=== PATIENT | male | born 1995 | race Caucasian/White ===

== ENCOUNTER 2020-02-08 21:34 | Emergency (ER) | payer OTHER, SELFPAY ==
[2020-02-08] VITALS (15 sets, daily range): BP systolic 109–145; BP diastolic 68–118; PULSE 85–130; RESP 12–22; TEMP 36.6; O2SAT 96–100
--- NOTE | ~2020-02-08 | CT_ITS ---
EXAMINATION: CT abdomen pelvis w con DATE: 02/08/2020 22:35 INDICATION: Right upper quadrant abdominal pain. TECHNIQUE: Computed tomography (CT) of the abdomen and pelvis was performed with 100 mL Omnipaque 350 intravenous contrast. Automated exposure control and iterative reconstruction technique were employe d. The dose-length product was 485.46 mGy-cm. COMPARISON: None. FINDINGS: The visualized portions of the lung bases are clear without pneumonia or pleural effusion. The heart size is normal. No pericardial effusion. The liver, gallbladder, spleen, pancreas, adrenal glands, and kidneys are normal. There are no dilated loops of bowel. The appendix is normal. There ar e no pathologically enlarged lymph nodes. There is no free intraperitoneal fluid. There is levocurvat ure of lumbar spine. IMPRESSION: 1. No etiology for the patient's symptoms. Reviewed, dictated and finalized at location A.
--- NOTE | 2020-02-08 21:47 | ED.ABDPAIN ---
HPI - Abdominal Pain General Chief Complaint: Abdominal Pain Stated Complaint: Right upper quadrant pain Time Seen by Provider: 02/08/20 21:46 History of Present Illness HPI narrative: RUQ pain for the past few days. Associated with nausea and vomiting. Worse with sitting up or leaning forward. He has had similar pain in the past, but never this bad. He has a h/o alcohol abuse and fatty liver disease. He has not had a drink in a year. He does report feeling extremely anxious. Related Data Home Medications Medication Instructions Recorded Confirmed clonazepam 02/08/20 pantoprazole PO 02/08/20 paroxetine HCl mg PO 02/08/20 Allergies Allergy/AdvReac Type Severity Reaction Status Date / Time No Known Allergies Allergy Verified 02/08/20 22:25 Review of Systems Review of Systems: All systems reviewed & are unremarkable except as noted in HPI and below Constitutional: Constitutional: Denies fever(s) ENT: Denies sore throat Cardiovascular: Cardiovascular: Denies chest pain Respiratory: Respiratory: Denies dyspnea Gastrointestinal: Gastrointestinal: Reports abdominal pain, Reports diarrhea and Reports nausea Genitourinary: Genitourinary: Denies dysuria Neurologic: Denies dizziness Psychiatric: Psychiatric: Reports anxiety [facility] Past Medical History Medical History (Updated 02/09/20 @ 00:27 by Rashard Song MD) Alcohol abuse Fatty liver Family History Family History (Updated 02/08/20 @ 22:03 by Rashard Song MD) Other Gall bladder disease Social History Social History (Updated 02/08/20 @ 22:03 by Rashard Song MD) Substance use type: marijuana Living arrangements: with family Exam Const: General: healthy appearing, no acute distress and alert Orientation/consciousness: patient oriented x3 HENMT: Head: normal to inspection Neck: Neck: normal visual inspection Resp: Effort & Inspection: normal respiratory effort Auscultation: clear to auscultation bilaterally, no rales, no rhonchi and no wheezes Cardio: Jugular venous distension: no JVD Rate: tachycardic Rhythm: regular rhythm Heart sounds: no murmurs GI: Inspection: non-distended GI Palp: Yes Soft to palpation, Yes Tenderness to palpation present (GI) (RUQ/epigastrium) and No Rebound tenderness present Skin: General skin exam: normal color Neuro: General: patient oriented x3 and moves all extremities Speech: normal speech Extrem: General: no edema Psych: Appearance: well kempt Affect: Anxious affect present (Tremulous, rapid speech) Course Vital Signs Vital signs: Vital Signs Temperature 36.6 C 02/08/20 21:40 Pulse Rate 130 H 02/08/20 21:40 Respiratory Rate 19 02/08/20 21:40 Blood Pressure 131/118 H 02/08/20 21:40 Pulse Oximetry 97 02/08/20 21:40 Temperature 36.6 C 02/08/20 21:40 Pulse Rate 74 02/09/20 00:39 Respiratory Rate 17 02/09/20 00:39 Blood Pressure 129/79 02/09/20 00:39 Pulse Oximetry 100 02/09/20 00:39 MDM - Abdominal Pain Differential Diagnosis Differential diagnosis: Likely calculus of kidney and other (PUD, cholecystitis, gastritis, IBS) Medical Records Attestation: I reviewed the patient's medical records. Lab Data Attestation: I reviewed the patient's lab results. Result diagrams: 02/08/20 21:54 02/08/20 22:23 Labs: Lab Results 02/08/20 02/08/20 02/08/20 Range/Units 21:54 21:54 22:23 WBC 14.7 H (4.5-10.0) K/mm3 RBC 5.21 (4.6-6.20) M/mm3 Hgb 15.4 (14.0-18.0) g/dL Hct 44.3 (42.0-52.0) % MCV 85.0 (80-100) fl MCH 29.6 (26-34) pg MCHC 34.8 (32-36) g/dl RDW 12.2 (11.5-14.5) % Plt Count 336 (150-375) k/mm3 MPV 11.6 H (7.4-10.4) fl Immature Gran % (Auto) 0.5 (0-0.5) % Neut % (Auto) 42.1 L (45.5-73.1) % Lymph % (Auto) 43.0 (18.3-44.2) % Greene % (Auto) 11.8 H (2.6-8.5) % Eos % (Auto) 1.9 (0-4.4) % Baso % (Auto) 0.7 (0.2-1.2
[2020-02-08] MEDS: fentaNYL CITRATE INJ (*CRX) 100 MCG/2 ML VIAL 50 MCG IV PUSH (22:02)
[2020-02-08] MEDS: ONDANSETRON INJ 4 MG/2 ML VIAL IV PUSH (22:02)
[2020-02-08] MEDS: PANTOPRAZOLE SODIUM IV 40 MG VIAL IV PUSH (22:02)
[2020-02-08 22:05] LABS: Basophils Absolute Auto 0.1 K/mm3 (0.0-0.1); Basophils Percent Auto 0.7 % (0.2-1.2); Eosinophils Absolute Auto 0.3 K/mm3 (0-0.3); Eosinophils Percent Auto 1.9 % (0-4.4); Hematocrit 44.3 % (42.0-52.0); Hemoglobin 15.4 g/dL (14.0-18.0); Immature Granulocyte Absolute 0.07 K/mm3 (0.00-0.031); Immature Granulocyte Percent A 0.5 % (0-0.5); Lymphocytes Absolute Auto 6.31 K/mm3 (0.9-3.2); Mean Corpuscular HGB Conc 34.8 g/dl (32-36); Mean Corpuscular Hemoglobin 29.6 pg (26-34); Mean Platelet Volume 11.6 fl (7.4-10.4); Monocytes Absolute Auto 1.7 K/mm3 (0.1-0.6); Monocytes Percent Auto 11.8 % (2.6-8.5); Neutrophils Absolute Auto 6.2 K/mm3 (1.3-6.7); Neutrophils Percent Auto 42.1 % (45.5-73.1); Platelet Count Result 336 k/mm3 (150-375); Red Blood Count 5.21 M/mm3 (4.6-6.20); Red Cell Distribution Width 12.2 % (11.5-14.5); White Blood Count 14.7 K/mm3 (4.5-10.0)
--- NOTE | 2020-02-08 22:19 | PC.NURSE ---
Patient in CT at this time.
[2020-02-08 22:25] LABS: Estimated CRCL calculation 102 ml/min; Estimated Glomerular Filt Rate > 60
[2020-02-08 22:25] LABS: Alanine Aminotransferase 45 U/L (4-50); Alkaline Phosphatase 62 U/L (38-126); Anion Gap 21 mmol/L (8-16); Aspartate Amino Transferase 46 U/L (17-59); Bilirubin,Total 1.1 mg/dL (0.2-1.3); Blood Urea Nitrogen 11 mg/dL (9-20); Calcium 10.4 mg/dL (8.4-10.2); Carbon Dioxide 19 mmol/L (22-30); Chloride 100 mmol/L (98-107); Estimated CRCL calculation 102 ml/min; Estimated Glomerular Filt Rate > 60; Glucose 119 mg/dL (75-110); Lipase 74 U/L (23-300); Potassium 2.7 mmol/L (3.4-5.0); Sodium 140 mmol/L (137-145)
[2020-02-08 23:31] LABS: Add Urine Microscopic? YES; Appearance Urine Clear (Clear); Bilirubin Urine Negative (Negative); Blood Urine Negative (Negative); Color Urine Yellow (Yellow); Glucose Urine UA Negative (Negative); Ketones Urine 2+ mg/dL (Negative); Leukocyte Esterase Ur Negative LEU/UL (Negative); Mucus Urine Rare /lpf; Nitrate Urine Negative (Negative); Protein Urine Negative (Negative); RBC Urine 0-2 /hpf (0-2); Urobilinogen Urine Negative mg/dL (<2.0); WBC Urine 0-3 /hpf
[2020-02-08] MEDS: DICYCLOMINE HCL INJ 20 MG/2 ML VIAL IM (23:38)
[2020-02-08] MEDS: POTASSIUM CHLORIDE 20 MEQ PACKET (FOR LIQUID) 40 MEQ PO (23:39)
[2020-02-08] MEDS: BELLADONNA ALK/PHENOB ELIX 10 ML, MAG HYDROX/ALUMINUM HYD/SIMETH 30 ML, LIDOCAINE HCL 2... PO (23:39)
[2020-02-09] VITALS: PULSE 88; RESP 20; O2SAT 99
[2020-02-09 00:15] VITALS: O2SAT 99
[2020-02-09 00:16] VITALS: BP 129/79; PULSE 89; RESP 17; O2SAT 97
[2020-02-09 00:39] VITALS: BP 129/79; PULSE 74; RESP 17; O2SAT 100
== END 2020-02-09 00:40 | disposition home or self-care (01) ==
PROVIDERS: Emergency Provider Emergency Medicine
DX: R10.11 Right upper quadrant pain (principal)
CPT/HCPCS: 36415; 74177; 80053; 81001; 83690; 85025; 96372; 96374; 96375; 99284; A9270; C9113; J0500; J2405; J3010; Q9967

== ENCOUNTER 2021-04-24 18:32 | Emergency (ER) | payer OTHER, SELFPAY ==
--- NOTE | ~2021-04-24 | CT_ITS ---
EXAMINATION: CT abdomen pelvis wo con DATE: 04/24/2021 20:24 INDICATION: Right flank pain TECHNIQUE: Computed tomography (CT) of the abdomen and pelvis was performed without intravenous contr ast. Automated exposure control and iterative reconstruction technique were employed. The dose-length product was 247.60 mGy-cm. COMPARISON: 02/08/2020 FINDINGS: Lung bases are clear. Heart size is normal. No pericardial or pleural effusion. Liver, gallbladder, s pleen, pancreas and bilateral adrenal glands are normal. Kidneys and ureters are normal with no uroli thiasis, hydroureteronephrosis or perinephric/ureteral stranding. Bladder is normal. Bowels including the appendix are normal. No free intraperitoneal gas or fluid. No pathologically enlarged abdominal or pelvic lymphadenopathy. Small bone islands at the bilateral femoral heads. Bones are otherwise unr emarkable. IMPRESSION: 1. No urolithiasis or acute intra-abdominal/pelvic process. Reviewed, dictated and finalized at [facility]. ER
--- NOTE | ~2021-04-24 | US_ITS ---
EXAMINATION: US scrotum doppler DATE: 04/24/2021 20:48 INDICATION: Right testicular pain TECHNIQUE: Testicular sonogram utilizing grayscale and Doppler COMPARISON: None. FINDINGS: The right testis measures 4.1 x 2.1 x 2.8 cm. The left testis measures cm. Symmetric normal grayscale appearance to both testes. There is normal vascular flow to both testes. 5 mm anechoic right epididy mal head cyst. The right epididymis is otherwise normal with normal vascular flow. The left epididymi s is normal with normal vascular flow. There is no varicocele or hydrocele. IMPRESSION: 1. 5 mm right epididymal head cyst. Otherwise normal scrotal ultrasound. Reviewed, dictated and finalized at [facility]. [employer]
[2021-04-24 18:37] VITALS: BP 135/88; PULSE 112; RESP 20; TEMP 36.3; O2SAT 100
--- NOTE | 2021-04-24 20:08 | ED.ABDPAIN ---
HPI - Abdominal Pain General Chief Complaint: Abdominal Pain Stated Complaint: right testicular pain Time Seen by Provider: 04/24/21 19:53 Source: patient Mode of arrival: ambulatory Limitations: no limitations History of Present Illness HPI narrative: Patient is a 25-year-old male complaining of lower abdominal pain, right flank pain, 7 out of 10, dull, radiating to his right groin and testicle, intermittent, started 2 weeks ago. Patient states that he feels constipated. Patient denies any testicular injuries. Patient denies any testicular swelling or redness. Related Data Home Medications Medication Instructions Recorded Confirmed clonazepam 02/08/20 pantoprazole PO 02/08/20 paroxetine HCl mg PO 02/08/20 Allergies Allergy/AdvReac Type Severity Reaction Status Date / Time No Known Allergies Allergy Verified 02/08/20 22:25 Review of Systems Review of Systems: All systems reviewed & are unremarkable except as noted in HPI and below Constitutional: Constitutional: Denies body ache(s), Denies chills, Denies excessive sweating, Denies fatigue, Denies fever(s), Denies headache(s), Denies lethargy, Denies malaise, Denies weakness and Denies weight loss Eyes: Eyes: Denies blurry vision, Denies change in vision and Denies loss of vision ENT: Denies dizziness, Denies ear discharge, Denies headache(s), Denies lip swelling, Denies epistaxis, Denies nasal congestion, Denies neck pain, Denies throat swelling and Denies tongue swelling Cardiovascular: Cardiovascular: Denies chest pain, Denies chest pain at rest, Denies chest pain with activity, Denies diaphoresis, Denies rapid heart rate, Denies edema, Denies irregular heart rhythm, Denies lightheadedness, Denies palpitations, Denies dyspnea and Denies dyspnea on exertion Respiratory: Respiratory: Denies chest congestion, Denies cough, Denies hemoptysis, Denies dyspnea and Denies dyspnea on exertion Gastrointestinal: Gastrointestinal: Denies melena, Denies hematochezia, Denies diarrhea, Denies nausea, Denies vomiting and Denies hematemesis Musculoskeletal: Musculoskeletal: Denies abnormal gait, Denies deformity, Denies joint swelling, Denies limited range of motion, Denies neck pain and Denies numbness Neurologic: Denies Abnormal speech present, Denies abnormal gait, Denies confusion, Denies dizziness, Denies headache(s), Denies focal weakness, Denies loss of vision, Denies numbness, Denies Other visual disturbances, Denies Sensory deficit (Neuro) and Denies weakness Psychiatric: Psychiatric: Denies confusion, Denies depression, Denies auditory hallucinations, Denies homicidal ideation and Denies suicidal ideation Endocrine: Endocrine: Denies cold intolerance, Denies excessive sweating, Denies fatigue, Denies heat intolerance and Denies palpitations Hematologic/Lymphatic: Hematologic/Lymphatic: Denies easy bleeding and Denies easy bruising Allergic/Immunologic: Allergic/Immunologic: Denies lip swelling, Denies throat swelling and Denies tongue swelling PMFSH Past Medical History Medical History Alcohol abuse Fatty liver Family History Family History Other Gall bladder disease Social History Social History Substance use type: marijuana Exam Const: General: cooperative, healthy appearing, comfortable, no acute distress, well developed, alert and awake; No confusion Orientation/consciousness: oriented to person, oriented to place, oriented to time, patient oriented x3 and No confusion Limitations: no limitations HENMT: Head: normal to inspection, normocephalic and atraumatic Ears: hearing grossly normal bilaterally, TM normal on the right and TM normal on the left General nose exam: Normal external nose present, Normal nares present and No nasal discharge present Face and sinus: normal facial exa
--- NOTE | 2021-04-24 20:15 | PC.NURSE ---
Pt to CT scan. States I don't know if I'm impacted or not. Pt reports constipation x 2 weeks for which he's taken Dulcolax sometimes and fiber supplements. Reports hx of IBS. Also c/o right testicle swelling and pain. On exam by ED MD Powell, no swelling or tenderness noted/reported. a/o x 4. no s/s of distress.
[2021-04-24 20:46] LABS: Basophils Absolute Auto 0.1 K/mm3 (0.0-0.1); Basophils Percent Auto 0.5 % (0.2-1.2); Eosinophils Absolute Auto 0.1 K/mm3 (0-0.3); Eosinophils Percent Auto 0.6 % (0-4.4); Hematocrit 42.5 % (42.0-52.0); Hemoglobin 14.3 g/dL (14.0-18.0); Immature Granulocyte Absolute 0.04 K/mm3 (0.00-0.031); Immature Granulocyte Percent A 0.3 % (0-0.5); Lymphocytes Absolute Auto 1.24 K/mm3 (0.9-3.2); Lymphocytes Percent Auto 10.7 % (18.3-44.2); Mean Corpuscular HGB Conc 33.6 g/dl (32-36); Mean Corpuscular Hemoglobin 29.4 pg (26-34); Mean Corpuscular Volume 87.3 fl (80-100); Mean Platelet Volume 10.8 fl (7.4-10.4); Monocytes Absolute Auto 0.7 K/mm3 (0.1-0.6); Neutrophils Absolute Auto 9.5 K/mm3 (1.3-6.7); Neutrophils Percent Auto 81.9 % (45.5-73.1); Platelet Count Result 268 k/mm3 (150-375); Red Blood Count 4.87 M/mm3 (4.6-6.20); Red Cell Distribution Width 12.5 % (11.5-14.5); White Blood Count 11.6 K/mm3 (4.5-10.0)
[2021-04-24 20:54] VITALS: BP 114/72; PULSE 75; RESP 20; TEMP 36.7; O2SAT 98
[2021-04-24 20:56] LABS: Alanine Aminotransferase 51 U/L (4-50); Albumin Level 4.9 g/dL (3.5-5.1); Alkaline Phosphatase 56 U/L (38-126); Anion Gap 7 mmol/L (8-16); Aspartate Amino Transferase 37 U/L (17-59); Bilirubin,Total 0.6 mg/dL (0.2-1.3); Blood Urea Nitrogen 11 mg/dL (9-20); Calcium 9.6 mg/dL (8.4-10.2); Carbon Dioxide 25 mmol/L (22-30); Chloride 104 mmol/L (98-107); Estimated CRCL calculation 105 ml/min; Estimated Glomerular Filt Rate > 60; Glucose 111 mg/dL (65-110); Lipase 44 U/L (23-300); Potassium 3.8 mmol/L (3.4-5.0); Sodium 136 mmol/L (137-145)
[2021-04-24 21:17] LABS: Add Urine Microscopic? NO; Appearance Urine Clear (Clear); Bilirubin Urine Negative (Negative); Blood Urine Negative (Negative); Color Urine Yellow (Yellow); Glucose Urine UA Negative (Negative); Ketones Urine Negative (Negative); Leukocyte Esterase Ur Negative LEU/UL (Negative); Nitrate Urine Negative (Negative); Protein Urine Negative (Negative); Urobilinogen Urine Negative mg/dL (<2.0)
[2021-04-24 22:57] VITALS: BP 132/86; PULSE 90; RESP 17; O2SAT 99
== END 2021-04-24 22:58 | disposition home or self-care (01) ==
PROVIDERS: Emergency Provider Emergency Medicine; PCP Nurse Practitioner Family
DX: R10.31 Right lower quadrant pain (principal); N50.811 Right testicular pain; N50.3 Cyst of epididymis
CPT/HCPCS: 36415; 74176; 76870; 80053; 81003; 83690; 85025; 93976; 99284

== ENCOUNTER 2022-01-28 16:14 | Observation (INO) | payer OTHER, SELFPAY ==
--- NOTE | ~2022-01-28 | CT_ITS ---
EXAMINATION: CT abdomen pelvis w con DATE: 01/28/2022 18:01 INDICATION: Right upper quadrant pain TECHNIQUE: Computed tomography (CT) of the abdomen and pelvis was performed with 100 mL Omnipaque-350 intravenous contrast. Automated exposure control and iterative reconstruction technique were employe d. The dose-length product was 558.31 mGy-cm. COMPARISON: 04/24/2021.. FINDINGS: Lower thorax: Unremarkable Liver: Normal. Biliary/Gallbladder: Gallbladder is normal. No bile duct dilation. Pancreas: No mass or duct dilation. Spleen: Normal. Adrenals:No mass. Kidneys: No mass, stone, or hydronephrosis. GI tract: No small or large bowel dilation. The appendix is dilated to 10 mm, with mild wall edema, b oth of which are new since the prior study. No surrounding inflammatory change. Mesentery/Peritoneum: No ascites, mass, or free air. Retroperitoneum: No mass. Pelvis: Pelvic organs are within normal limits. Soft Tissues: Soft tissues and body wall unremarkable. Bones: No acute osseous finding. IMPRESSION: Mildly dilated appendix with mild wall edema, may reflect early acute appendicitis in the appropriate clinical context. Reviewed, dictated and finalized at location K. IMPRESSION: Mildly dilated appendix with mild wall edema, may reflect early acute appendici tis in the appropriate clinical context.
[2022-01-28 16:21] VITALS: BP 136/89; PULSE 124; RESP 19; TEMP 37.1; O2SAT 100
--- NOTE | 2022-01-28 16:46 | ED.ABDPAIN ---
HPI - Abdominal Pain General Chief Complaint: Abdominal Pain Stated Complaint: right sided abdominal Time Seen by Provider: 01/28/22 16:42 Source: patient, family and RN notes reviewed Mode of arrival: ambulatory Limitations: no limitations History of Present Illness HPI narrative: Patient is 26 years old white male drove himself to the emergency room complaining of right upper quadrant pain radiating to right shoulder blades over 1 year, constant with intermittent flares, patient have seen a lot of physicians, been to a lot of emergency room been to auto servicer had extensive work-up without a specific diagnosis. Patient's girlfriend reported that patient under tremendous amount of stress. 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 Patient denies any fever, chills, nausea, vomiting. Patient does medicine at home, does not smoke or drink or uses drugs. Related Data Home Medications Medication Instructions Recorded Confirmed clonazepam 1 mg tablet 02/08/20 pantoprazole 40 mg tablet,delayed PO 02/08/20 release paroxetine HCl 20 mg tablet mg PO 02/08/20 Allergies Allergy/AdvReac Type Severity Reaction Status Date / Time No Known Allergies Allergy Verified 02/08/20 22:25 Review of Systems Review of Systems: All systems reviewed & are unremarkable except as noted in HPI and below PMFSH Past Medical History Medical History Alcohol abuse Fatty liver Family History Family History Other Gall bladder disease Social History Social History Substance use type: marijuana Exam Narrative: General appearance: Well-developed, well-nourished, anxious, restless Skin: Normal color Head: Normocephalic, nontraumatic Eyes: Clear conjunctiva ENT: Oropharynx normal, ears normal, nose normal Neck: Supple, nontender Chest and respiratory: Airway patent, no respiratory distress, no accessory muscle use Heart: Regular rate/rhythm Abdomen: Soft, nontender, no organomegaly, quiet bowel sounds Vascular: Normal peripheral pulses, normal capillary refill. Musculoskeletal: Normal range of motion, nontender back Neurologic: Alert and oriented ?3, [employer] is normal as tested, no gross motor deficit Course Consultations Consultation #1: Dr. Kimball Admit to his service, n.p.o. after midnight Date: 01/28/22 Time: 19:00 Vital Signs Vital signs: Vital Signs Temperature 37.1 C 01/28/22 16:21 Pulse Rate 124 H 01/28/22 16:21 Respiratory Rate 19 01/28/22 16:21 Blood Pressure 136/89 01/28/22 16:21 Pulse Oximetry 100 01/28/22 16:21 Oxygen Delivery Room Air 01/28/22 16:21 Temperature 37.1 C 01/28/22 16:21 Pulse Rate 124 H 01/28/22 16:21 Respiratory Rate 19 01/28/22 16:21 Blood Pressure 136/89 01/28/22 16:21 Pulse Oximetry 100 01/28/22 16:21 Oxygen Delivery Room Air 01/28/22 16:21 MDM - Abdominal Pain Differential Diagnosis Differential diagnosis: Likely abdominal pain, acute appendicitis, constipation, diverticulitis, gastroenteritis and pancreatitis Lab Data Result diagrams: 01/28/22 16:49 01/28/22 16:49 Labs: Lab Results 01/28/22 01/28/22 Range/Units 16:49 16:49 WBC 6.2 (4.5-10.0) K/mm3 RBC 5.01 (4.6-6.20) M/mm3 Hgb 14.5 (14.0-18.0) g/dL Hct 43.6 (42.0-52.0) % MCV 87.0 (80-100) fl MCH 28.9 (26-34) pg MCHC 33.3 (32-36) g/dl RDW 12.5 (11.5-14.5) % Plt Count 294 (150-375) k/mm3 MPV 10.9 H (7.4-10.4) fl Immature Gran % (A
[2022-01-28 16:59] LABS: Basophils Absolute Auto 0.1 K/mm3 (0.0-0.1); Basophils Percent Auto 0.8 % (0.2-1.2); Eosinophils Absolute Auto 0.1 K/mm3 (0-0.3); Eosinophils Percent Auto 1.4 % (0-4.4); Hematocrit 43.6 % (42.0-52.0); Hemoglobin 14.5 g/dL (14.0-18.0); Immature Granulocyte Absolute 0.04 K/mm3 (0.00-0.031); Immature Granulocyte Percent A 0.6 % (0-0.5); Lymphocytes Percent Auto 28.9 % (18.3-44.2); Mean Corpuscular HGB Conc 33.3 g/dl (32-36); Mean Corpuscular Hemoglobin 28.9 pg (26-34); Mean Platelet Volume 10.9 fl (7.4-10.4); Monocytes Absolute Auto 0.6 K/mm3 (0.1-0.6); Monocytes Percent Auto 9.1 % (2.6-8.5); Neutrophils Absolute Auto 3.7 K/mm3 (1.3-6.7); Neutrophils Percent Auto 59.2 % (45.5-73.1); Platelet Count Result 294 k/mm3 (150-375); Red Blood Count 5.01 M/mm3 (4.6-6.20); Red Cell Distribution Width 12.5 % (11.5-14.5); White Blood Count 6.2 K/mm3 (4.5-10.0)
[2022-01-28] MEDS: HYDROmorphone HCL INJ (*CRX) 1 MG/ML SYR 0.5 MG IV PUSH ×2 (17:03→20:39)
[2022-01-28] MEDS: SODIUM CHLORIDE 0.9% IV 1,000 ML 999 ML IV CONT (17:03)
[2022-01-28] MEDS: ONDANSETRON INJ 4 MG/2 ML VIAL IV PUSH (17:03)
[2022-01-28 17:07] LABS: Alanine Aminotransferase 54 U/L (6-50); Alkaline Phosphatase 52 U/L (38-126); Anion Gap 13 mmol/L (8-16); Aspartate Amino Transferase 38 U/L (17-59); Bilirubin,Total 0.5 mg/dL (0.2-1.3); Blood Urea Nitrogen 10 mg/dL (9-20); Calcium 9.6 mg/dL (8.4-10.2); Carbon Dioxide 22 mmol/L (22-30); Chloride 108 mmol/L (98-107); Estimated CRCL calculation 95 ml/min; Estimated Glomerular Filt Rate > 60; Glucose 116 mg/dL (65-110); Lipase 69 U/L (23-300); Sodium 143 mmol/L (137-145)
[2022-01-28 19:18] LABS: Appearance Urine Clear (Clear); Bilirubin Urine Negative (Negative); Blood Urine Trace-intact (Negative); Color Urine Yellow (Yellow); Glucose Urine UA Negative (Negative); Ketones Urine Negative (Negative); Leukocyte Esterase Ur Negative LEU/UL (Negative); Mucus Urine Rare /lpf; Nitrate Urine Negative (Negative); Protein Urine Negative (Negative); RBC Urine 0-2 /hpf (0-2); Specific Grav Ur <= 1.005 (1.001-1.035); Urobilinogen Urine 0.2 mg/dL (<2.0)
[2022-01-28 19:22] LABS: Add Urine Microscopic? YES
--- NOTE | 2022-01-28 20:05 | ADMGEN ---
This patient, Rodri Hanna, was admitted to Medical Room 345-01. Patient/family oriented to hospital policies and general routines including ID bracelet, bed and alarms, visiting hours, pain management, procedures, bathroom and other care routines, personal items, smoking policy, room service/diet, and visiting hours. Information on how to activate the Rapid Response Team has been discussed. Patient/Family are encouraged to report perceived risks to care and to ask questions if they do not understand what they are told or what they should do.
[2022-01-28 20:06] VITALS: BP 146/54; PULSE 96; RESP 16; TEMP 37.1; O2SAT 100
[2022-01-28 20:12] VITALS: BMI 29.3
[2022-01-28] MEDS: LACTATED RINGERS 1,000 ML 125 ML IV CONT (20:40)
[2022-01-29] MEDS: ONDANSETRON INJ 4 MG/2 ML VIAL IV PUSH ×2 (01:39→05:44)
[2022-01-29] MEDS: HYDROmorphone HCL INJ (*CRX) 1 MG/ML SYR 0.5 MG IV PUSH ×2 (01:39→06:11)
[2022-01-29 05:06] VITALS: BP 111/53; PULSE 61; RESP 16; TEMP 36.9; O2SAT 100
[2022-01-29] MEDS: LACTATED RINGERS 1,000 ML 125 ML IV CONT (05:43)
--- NOTE | 2022-01-29 09:02 | WPDANESEPPF ---
Anes - Initial Pre Proc Eval Procedure: Operation Date: 01/29/22 10:30 Proposed Procedures p Laparoscopic Appendectomy - Jacey Kimball MD Date/Time: 01/29/22 09:02 Surgeon: Jacey Kimball MD Pre Op Diagnosis: Acute Appendicitis Patient Data Age: 26 Gender: M Height: 1.78 m Weight: 92.7 kg Last Vital Signs Temp 36.9 C 01/29/22 05:06 Pulse 61 01/29/22 05:06 Resp 16 01/29/22 05:06 BP 111/53 L 01/29/22 05:06 Pulse Ox 100 01/29/22 05:06 O2 Del Method Room Air 01/28/22 16:21 Allergies Allergy/AdvReac Type Severity Reaction Status Date / Time No Known Allergies Allergy Verified 02/08/20 22:25 Home Medications Medication Instructions Recorded Confirmed Type clonazepam 1 mg tablet 1 mg PO DAILY PRN Anxiety 02/08/20 01/28/22 History fluoxetine 10 mg capsule 10 mg PO QAM 01/28/22 01/28/22 History quetiapine 25 mg tablet 25 mg PO TID 01/28/22 01/28/22 History Laboratory Tests 01/28/22 01/28/22 01/28/22 16:49 16:49 18:55 WBC 6.2 K/mm3 K/mm3 (4.5-10.0) RBC 5.01 M/mm3 M/mm3 (4.6-6.20) Hgb 14.5 g/dL g/dL (14.0-18.0) Hct 43.6 % % (42.0-52.0) MCV 87.0 fl fl (80-100) MCH 28.9 pg pg (26-34) MCHC 33.3 g/dl g/dl (32-36) RDW 12.5 % % (11.5-14.5) Plt Count 294 k/mm3 k/mm3 (150-375) MPV 10.9 fl H fl (7.4-10.4) Immature Gran % (Auto) 0.6 % H % (0-0.5) Neut % (Auto) 59.2 % % (45.5-73.1) Lymph % (Auto) 28.9 % % (18.3-44.2) Gilchrist % (Auto) 9.1 % H % (2.6-8.5) Eos % (Auto) 1.4 % % (0-4.4) Baso % (Auto) 0.8 % % (0.2-1.2) Lymph # (Auto) 1.80 K/mm3 K/mm3 (0.9-3.2) Gilchrist # (Auto) 0.6 K/mm3 K/mm3 (0.1-0.6) Eos # (Auto) 0.1 K/mm3 K/mm3 (0-0.3) Baso # (Auto) 0.1 K/mm3 K/mm3 (0.0-0.1) Abs Immat Gran (auto) 0.04 K/mm3 H K/mm3 (0.00-0.031) Absolute Neuts (auto) 3.7 K/mm3 K/mm3 (1.3-6.7) Absolute Nucleated RBC 0.0 K/mm3 K/mm3 (0.0-0.012) Nucleated RBC % 0.0 % % (0.0-0.2) Sodium 143 mmol/L mmol/L (137-145) Potassium 4.0 mmol/L mmol/L (3.4-5.0) Chloride 108 mmol/L H mmol/L (98-107) Carbon Dioxide 22 mmol/L mmol/L (22-30) Anion Gap 13 mmol/L mmol/L (8-16) BUN 10 mg/dL mg/dL (9-20) Creatinine 1.10 mg/dL mg/dL (0.7-1.3) Estim Creat Clear Calc 95 ml/min ml/min Estimated GFR > 60 (59 - ) Glucose 116 mg/dL H mg/dL (65-110) Calcium 9.6 mg/dL mg/dL (8.4-10.2) Total Bilirubin 0.5 mg/dL mg/dL (0.2-1.3) AST 38 U/L U/L (17-59) ALT 54 U/L H U/L (6-50) Alkaline Phosphatase 52 U/L U/L (38-126) Total Protein 8.0 g/dL g/dL (6.3-8.2) Albumin 5.0 g/dL g/dL (3.5-5.1) Lipase 69 U/L U/L (23-300) Urine Color Yellow (Yellow) Urine Appearance Clear (Clear) Urine pH 6.0 (5.0-9.0) Ur Specific Cobb <= 1.005 (1.001-1.035) Urine Protein Negative mg/dL mg/dL (Negative) Urine Glucose (UA) Negative mg/dL mg/dL (Negative) Urine Ketones Negative mg/dL mg/dL (Negative) Ur Blood (Man) Trace-intact (Negative) Urine Nitrate Negative (Negative) Urine Bilirubin Negative (Negative) Urine Urobilinogen 0.2 mg/dL mg/dL (<2.0) Leukocyte Esterase Rfl Negative HORACIO/UL HORACIO/UL (Negative) Urine RBC 0-2 /hpf /hpf (0-2) Urine Mucus Rare /lpf /lpf Patient hx anesthesia problems: none Family hx anesthesia problems: none Results Review: All pre-operative results and documents have been reviewed as part of the pre-operative evaluation. [facility] Past Medical History Medical History (Updated
--- NOTE | 2022-01-29 09:29 | PM.IMHP ---
H&P: HPI History of Present Illness Date/Time: 01/29/22 09:29 Chief Complaint: abdominal pain Narrative: Pt is a 26 y/o M presenting to ED c/o worsening R sided abd pain over last few days. Pt reports pain is more R mid abdomen and radiates up to his R shoulder. Pt reports assoc nausea, poor appetite, bloating. Pt denies fevers, chills. Pt reports this pain is acute but he does have similar pain intermittently for the last yr. Pt reports extensive workup that has all been negative in the past. Review of Systems Constitutional: Constitutional: Reports as per HPI, Denies anorexia, Denies chills, Denies fever(s), Denies lethargy, Denies malaise, Reports poor appetite, Denies weakness, Denies weight gain and Denies weight loss Eyes: Eyes: Reports no additional eye complaints ENT: Reports system reviewed and no additional complaints, except as documented Cardiovascular: Cardiovascular: Reports no additional cardiovascular complaints Respiratory: Respiratory: Reports no additional respiratory complaints Gastrointestinal: Gastrointestinal: Reports as per HPI, Reports abdominal pain, Reports bloating, Reports GI cramping, Reports nausea, Denies vomiting and Denies hematemesis Genitourinary: Genitourinary: Reports no additional male genitourinary complaints Musculoskeletal: Musculoskeletal: Reports no additional musculoskeletal complaints Integumentary/Breasts: Skin/Breast: Reports system reviewed and no additional complaints, except as docu Neurologic: Reports system reviewed and no additional complaints, except as documented Psychiatric: Psychiatric: Reports no additional psychiatric complaints Endocrine: Endocrine: Reports no additional endocrine complaints Hematologic/Lymphatic: Hematologic/Lymphatic: Reports no additional hematologic/lymphatic complaints Allergic/Immunologic: Allergic/Immunologic: Reports no additional allergic/immunologic complaints [facility] Past Medical History Medical History Alcohol abuse as a teenager Asthma Fatty liver 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 Family History Family History Grandparent Diabetes mellitus Acute myocardial infarction Sibling Diabetes mellitus Other Gall bladder disease Social History Social History Smoking status: Never smoker Alcohol intake: never Substance use: current Substance use type: marijuana Other substance usage details: doesnt smoke it, vaporizes it Spiritual care concerns: No Meds Home Medications and Allergies Home Medications Medication Instructions Recorded Confirmed Type clonazepam 1 mg tablet 1 mg PO DAILY PRN Anxiety 02/08/20 01/28/22 History fluoxetine 10 mg capsule 10 mg PO QAM 01/28/22 01/28/22 History quetiapine 25 mg tablet 25 mg PO TID 01/28/22 01/28/22 History Allergies Allergy/AdvReac Type Severity Reaction Status Date / Time No Known Allergies Allergy Verified 02/08/20 22:25 Vital Signs Vital Signs - 24 hr 01/28/22 16:21 01/28/22 20:06 01/29/22 05:06 Temperature 37.1 C 37.1 C 36.9 C Pulse Rate 124 H 96 61 Respiratory Rate 19 16 16 Blood Pressure 136/89 146/54 H 111/53 L Pulse Oximetry 100 100 100 Oxygen Delivery Room Air Exam Const: General: cooperative, comfortable and acute distress mild Orientation/consciousness: patient oriented x3 Limitations: no limitations HENMT: Head: normal to inspection, normocephalic and atraumatic Eyes: General: appearance normal, both eyes and all related structures Neck: Neck: normal visual inspection, full ROM and no lymphadenopathy Chest: Chest palpation & inspection: normal inspection of the chest Resp: Effort & Inspection: normal respiratory effort Auscultation: clear to auscultation bilaterally Cardio: Rate: regular rate Rhythm: regular rhythm GI: Inspection:
--- NOTE | 2022-01-29 09:35 | WPDHPUPDATE1 ---
History and Physical Update Update Date/Time: 01/29/22 09:35 History and Physical has been reviewed, including an updated exam of the patient. There are NO changes in the patient's condition. Risks, benefits, and alternatives have been discussed and questions answered. Patient agrees to proceed with procedure.
[2022-01-29] MEDS: BUPIVACAINE/EPINEPHRINE 0.25% 50 ML VIAL 30 ML INFILTRATE (09:59)
--- NOTE | 2022-01-29 10:12 | W.PM.PROC2 ---
Procedure Note - Detailed Date of Procedure 01/29/22 Pre-op Diagnosis Acute Appendicitis Post-op Diagnosis Same Procedure Performed laparoscopic appendectomy Surgeon Jacey Kimball MD Anesthesia General Indications 26 y/o M presenting to ED c R sided abd pain, workup significant for acute appendicitis Findings acute appendicitis no evidence of perforation Description of Procedure The patient was taken to the operating room and placed in the supine position. After adequate induction of general anesthesia, the patient was prepped and draped in the normal sterile fashion. A time-out was then done to verify the patient's identity, as well as the procedure being performed. I began by making a 5 mm incision in the infraumbilical region, through this a Veress needle was placed in the peritoneal cavity. CO2 gas was then insufflated and after adequate pneumoperitoneum was achieved the Veress needle was removed. Then placed a 5 mm Optiview trocar under direct visualization into the peritoneal cavity. I then insufflated through this trocar site and the endoscope was placed into the trocar. Under direct visualization, placed 2 further 5 mm suprapubic port as well as an additional 12 mm port in the left lower abdomen. At this point identified the cecum, I retracted the cecum both medially and superiorly allowing me to expose the appendix. The appendix was noted to be very dilated and inflamed especially towards the tip. The appendix was noted to be very adherent to the right lateral sidewall as well as the ileum. I was able to bluntly dissect the appendix from these adhesions. I then was able to locate the base of the appendix with the cecum. I created a window with the [place] dissector between the appendix itself and the mesoappendix. I then transected the mesoappendix with a white vascular staple load. The Endo-AINSLEY was then reloaded with a blue staple load and I transected the base of the appendix. Once the specimen was completely detached, an endo-pouch was placed into the 12 mm port site and the specimen was removed through the endo-pouch. The appendiceal specimen will be sent to pathology for further review. I then copiously irrigated the right lower quadrant. Hemostasis was noted at both staple lines no other pathology was seen in this area. I then moved the camera to the suprapubic port to check our its port of entry. No iatrogenic injury or other pathology was noted in the upper abdomen. I then closed the 12 mm port site with a Maxwell code and 0 Vicryl suture under direct visualization. At this point, the abdomen was desufflated and all ports were removed. All port sites were closed with 4 Monocryl subcuticular suture. Dermabond was placed on all wounds. The patient tolerated the procedure well and was extubated in the operating room postop. He will be sent to the recovery room in stable condition. Estimated Blood Loss 10 Drains No Packing No Pathology Yes Complications No immediate complications Condition Stable Disposition PACU [facility] Billing Surgery - Charge Forward: Surgery Billing
[2022-01-29 10:23] VITALS: BP 145/63; PULSE 113; RESP 18; TEMP 36.3; O2SAT 100
[2022-01-29] MEDS: LACTATED RINGERS 1,000 ML 30 ML IV CONT (10:23)
[2022-01-29] MEDS: MEPERIDINE HCL INJ (*CRX) 50 MG/ML AMPUL 25 MG IV PUSH (10:29)
[2022-01-29 10:35] VITALS: BP 130/63; PULSE 88; RESP 12; O2SAT 100
[2022-01-29] MEDS: fentaNYL CITRATE INJ (*CRX) 100 MCG/2 ML VIAL 25 MCG IV PUSH ×3 (10:35→10:57)
[2022-01-29 10:50] VITALS: BP 157/60; PULSE 110; RESP 17; O2SAT 99
[2022-01-29 11:05] VITALS: BP 130/72; PULSE 99; RESP 11; O2SAT 98
[2022-01-29] MEDS: FLUoxetine HCL 10 MG CAPSULE PO (11:44)
[2022-01-29] MEDS: HYDROcodone/acetaminophen (*CRX) 5-325 MG TABLET 1 TAB PO (11:47)
[2022-01-29] MEDS: QUEtiapine FUMARATE 25 MG TABLET PO (13:04)
--- NOTE | 2022-01-30 07:42 | WPDANESPN ---
Anes - Prog Note Post-Op Date/Time: 01/30/22 07:42 Cardiovascular status: normal Respiratory status: normal Airway patency: baseline Mental status: baseline Post-Op hydration status: normal Vital Signs: Last Vital Signs Temp 97.4 F L 01/29/22 10:23 Pulse 99 01/29/22 11:05 Resp 11 L 01/29/22 11:05 BP 130/72 01/29/22 11:05 Pulse Ox 98 01/29/22 11:05 O2 Del Method Room Air 01/29/22 11:05 O2 Flow Rate 10 01/29/22 10:35 Pain Score (VAS): 0/10 I/O: Intake & Output 01/29/22 01/29/22 01/30/22 15:59 23:59 07:59 Intake Total 500 Balance 500 Laboratory Tests 01/28/22 16:49 01/28/22 16:49 Post-procedural complaints: none Patient Feedback: Patient satisfied with anesthetic care.
--- NOTE | 2022-01-31 15:29 | PM.DS ---
DS: Admitting Diagnosis Discharge Date 01/29/22 Admitting Diagnosis acute appendicitis DS: Discharge Diagnosis Discharge Diagnosis (1) Acute appendicitis: Code(s): K35.80 - Unspecified acute appendicitis Status: Acute Assessment and Plan: status post laparoscopic appendectomy, doing well, instructions given for routine postoperative care, home with p.o. analgesia and Colace, follow-up 2 weeks DS: Summary Hospital Course Reason for hospitalization: acute appendicitis Hospital Course: The patient is a 26-year-old male that presented to the emergency department complaining of severe right lower quadrant abdominal pain. Workup in the emergency department, including imaging, was significant for acute appendicitis. These findings, the patient was admitted to the surgical service. Patient was made NPO and started on IV antibiotics. Upon evaluation, the decision was made for urgent appendectomy. The patient was taken to the operating room and laparoscopic appendectomy was performed, please see full operative report for details of that procedure. Postoperatively, the patient did well was transferred back to the surgical floor. While on the floor the patient was able to tolerate a diet and was ambulating without issue. The patient reported his pain was well controlled with p.o. analgesia. The patient will be discharged home with instructions for routine postoperative care and p.o. analgesia. He will follow up in 2 weeks. Status at Discharge Functional status at discharge: independent ambulation Overall status at discharge: patient is progressing back to baseline Time Spent with Patient Time attestation: Total time spent providing and/or coordinating discharge services: Time spent: Less than 30 minutes Exam Const: General: cooperative, comfortable and no acute distress Resp: Auscultation: clear to auscultation bilaterally Cardio: Rate: regular rate Rhythm: regular rhythm GI: Inspection: normal to inspection, distended and incision GI Palp: Yes abdominal tenderness, Yes Soft to palpation, Yes Tenderness to palpation present (GI), No Guarding due to palpation present (GI) and No Rigid due to palpation DS: Data Data Completed and Pending Completed studies during hospitalization: Pending at discharge 01/29/22 10:00 Surgical [PTH] Routine Discharge Plan Discharge Attending physician on discharge: Jacey Kimball Consulting providers: Oskar Carbajal Discharging Clinician: Jacey Kimball Anticipated Discharge Date/Time: 01/29/22 14:00 Patient Disposition: Home, Self-Care Activity: other - see discharge instructions Diet: other - see discharge instructions Wound Care Instructions: keep dressing dry Discharge Instructions: DISCHARGE INSTRUCTION SHEET FOR HERNIA, GALLBLADDER AND APPENDIX SURGERIES DR. KIMBALL PATIENT TO TAKE HOME 1. May shower in 24 hours, no soaking in bath x 2weeks. 2. Call office for: Wound increasingly painful or bleeding Vomiting Fever of greater than 101 degrees 3. If no bowel movement for three days, take 1 oz. (30 ml) Milk of Magnesia or MiraLax 17g 1 to 2 times daily. 4. No heavy lifting > 10-15 pounds x 6 weeks for hernia repairs and 2 weeks for laparoscopic cholecystectomy or appendectomy. 5. No driving for 3 days or while taking narcotic pain medications. 6. Ice to surgical site for 48 hours (30 min on, then 30 min off). 7. Up walking 10-30 minutes three times per day. 8. Resume previous home medications. 9. Follow-up 10-14 days in office for wound check or as previously scheduled. ([phone]) 10. Oral pain medications prescription to be sent to pharmacy. Take Tylenol 500mg every 6 hours and Ibuprofen 600mg every 6 hours for the first 2 days, then as needed. 11. NUTRITION: Start out by drinking fluids and increase your diet as tolerated. If you experience nausea, try
== END 2022-01-29 13:25 | disposition home or self-care (01) ==
LOC: ANHED 18:48 → ANH3MED 19:40
PROVIDERS: Admitting Provider Surgery; Emergency Provider Emergency Medicine; PCP Nurse Practitioner Family; Visit Provider Surgery
PROC: 0DTJ4ZZ Resection of Appendix, Percutaneous Endoscopic Approach (ICD-10-PCS; CPT 44970; principal; 2022-01-29 10:30)
DX: K35.80 Unspecified acute appendicitis (principal); F10.10 Alcohol abuse, uncomplicated; K76.0 Fatty (change of) liver, not elsewhere classified; J45.909 Unspecified asthma, uncomplicated; E66.3 Overweight; Z68.29 Body mass index [BMI] 29.0-29.9, adult; F12.90 Cannabis use, unspecified, uncomplicated; Z79.899 Other long term (current) drug therapy
CPT/HCPCS: 44970; 36415; 74177; 80053; 81001; 83690; 85025; 88304; 96361; 96365; 96375; 96376; 99285; A9270; G0378; J0131; J0330; J1100; J1170; J2175; J2250; J2405; J2543; J2704; J3010; J7030; J7120; Q9967

== ENCOUNTER 2022-02-17 12:05 | Outpatient (CLI) | payer OTHER, SELFPAY ==
[2022-02-17 12:23] LABS: Basophils Absolute Auto 0.1 K/mm3 (0.0-0.1); Basophils Percent Auto 1.2 % (0.2-1.2); Eosinophils Absolute Auto 0.4 K/mm3 (0-0.3); Eosinophils Percent Auto 5.7 % (0-4.4); Hematocrit 43.2 % (42.0-52.0); Hemoglobin 14.4 g/dL (14.0-18.0); Immature Granulocyte Absolute 0.04 K/mm3 (0.00-0.031); Immature Granulocyte Percent A 0.6 % (0-0.5); Lymphocytes Absolute Auto 2.53 K/mm3 (0.9-3.2); Lymphocytes Percent Auto 37.1 % (18.3-44.2); Mean Corpuscular HGB Conc 33.3 g/dl (32-36); Mean Corpuscular Hemoglobin 29.1 pg (26-34); Mean Corpuscular Volume 87.4 fl (80-100); Mean Platelet Volume 11.1 fl (7.4-10.4); Monocytes Absolute Auto 0.7 K/mm3 (0.1-0.6); Neutrophils Absolute Auto 3.1 K/mm3 (1.3-6.7); Neutrophils Percent Auto 45.4 % (45.5-73.1); Platelet Count Result 304 k/mm3 (150-375); Red Blood Count 4.94 M/mm3 (4.6-6.20); Red Cell Distribution Width 12.4 % (11.5-14.5); White Blood Count 6.8 K/mm3 (4.5-10.0)
[2022-02-17 12:35] LABS: Alanine Aminotransferase 48 U/L (6-50); Albumin Level 4.9 g/dL (3.5-5.1); Alkaline Phosphatase 50 U/L (38-126); Anion Gap 17 mmol/L (8-16); Aspartate Amino Transferase 33 U/L (17-59); Bilirubin,Total 0.4 mg/dL (0.2-1.3); Blood Urea Nitrogen 12 mg/dL (9-20); Calcium 9.4 mg/dL (8.4-10.2); Carbon Dioxide 26 mmol/L (22-30); Chloride 102 mmol/L (98-107); Estimated Glomerular Filt Rate > 60; Glucose 100 mg/dL (65-110); Potassium 3.8 mmol/L (3.4-5.0); Sodium 145 mmol/L (137-145)
== END 2022-02-17 12:06 | disposition home or self-care (01) ==
LOC: ANHLAB 12:07
PROVIDERS: PCP Nurse Practitioner Family; Visit Provider Surgery
DX: R10.11 Right upper quadrant pain (principal)
CPT/HCPCS: 36415; 80053; 85025

== ENCOUNTER 2022-02-28 11:48 | Outpatient (CLI) | payer OTHER, SELFPAY ==
--- NOTE | ~2022-02-28 | US_ITS ---
EXAMINATION: US abdomen limited DATE: 02/28/2022 12:10 INDICATION: Right upper quadrant abdominal pain. TECHNIQUE: Multiple grayscale and Doppler ultrasound images of the abdomen were obtained. COMPARISON: CT abdomen and pelvis 01/28/2022 FINDINGS: The visualized portions of the head and body of the pancreas are normal. The liver is jian l without focal lesion. There is normal flow in main portal vein. The gallbladder is normal in size. No gallstones or gallbladder wall thickening. There was no sonographic Wilson sign. The common duct i s normal and measures 4 mm. IMPRESSION: 1. Normal right upper quadrant ultrasound. Reviewed, dictated and finalized at location A.
== END 2022-02-28 11:49 ==
PROVIDERS: PCP Internal Medicine; Visit Provider Surgery
DX: R10.11 Right upper quadrant pain (principal)
CPT/HCPCS: 76705

== ENCOUNTER 2022-03-13 08:14 | Outpatient (CLI) | payer OTHER, SELFPAY ==
--- NOTE | ~2022-03-13 | NM_ITS ---
EXAMINATION: NM hepatobiliary wo pharm DATE: 03/13/2022 10:37 INDICATION: Right upper quadrant abdominal pain COMPARISON: None. TECHNIQUE: 4.7 mCi Tc-99m mebrofenin (Choletec) was administered intravenously. Scintigraphic images of the abdomen were obtained for one hour. At the 1 hour time point, the patient drank 8 oz Ensure, and imaging was continued for 60 minutes. Gallbladder ejection fraction was calculated by the technol ogist. FINDINGS: There is normal clearance of radiotracer from the blood pool. There is homogeneous tracer u ptake by the liver. Activity progresses to the bowel and gallbladder. The gallbladder ejection fract ion (GBEF) is 56%. Note that with this technique, normal GBEF >= 33%. IMPRESSION: 1. Normal hepatobiliary scan. Reviewed, dictated and finalized at location B. [employer] DEVELOPMENT SCIENTIST
== END 2022-03-13 08:15 | disposition home or self-care (01) ==
PROVIDERS: PCP Internal Medicine; Visit Provider Surgery
DX: R10.11 Right upper quadrant pain (principal)
CPT/HCPCS: 78226; A9537

== ENCOUNTER 2022-05-08 13:41 | Emergency (ER) | payer OTHER, SELFPAY ==
--- NOTE | ~2022-05-08 | XR_ITS ---
EXAMINATION: XR abdomen/kub 1V DATE: 05/08/2022 14:24 INDICATION: Right flank pain. Microscopic hematuria. TECHNIQUE: A supine view of the abdomen on 2 radiographs was obtained. COMPARISON: CT abdomen and pelvis 01/28/2022 FINDINGS: There are no dilated loops of bowel. There is a moderate volume of stool in the colon. Ther e is no visible urolithiasis. IMPRESSION: 1. No visible urolithiasis. Reviewed, dictated and finalized at location A. IFIED TOWER CLIMBER IMPRESSION: 1. No visible urolithiasis.
[2022-05-08 13:49] VITALS: BP 149/83; PULSE 105; RESP 16; TEMP 36.7; O2SAT 98
--- NOTE | 2022-05-08 13:51 | ED.ABDPAIN ---
HPI - Abdominal Pain General Chief Complaint: Abdominal Pain Stated Complaint: abdominal pain, foamy urine,nausea, back pain Time Seen by Provider: 05/08/22 13:59 Source: patient and RN notes reviewed Mode of arrival: ambulatory Limitations: no limitations History of Present Illness HPI narrative: 26-year-old male presents with concern for ?foamy? urine and chronic abdominal pain. He reports he has been seeing a coder operator for chronic abdominal pain. He had a an appendectomy in January, he had a workup for cholecystitis which was negative. He has had a extensive workup of his chronic abdominal pain without any significant findings. He has an appointment for follow-up with his GI doctor on the 19 of May, he has an appointment with his primary care doctor later this week. He denies fever. Reports chronic chills, body aches, he denies any changes in the symptoms. He reports he currently is not having any pain but his pain is intermittent. He denies vomiting or nausea. Reports constipation. Reports painful bowel movements and straining. MD elicited complaint: abdominal pain Related Data Home Medications Medication Instructions Recorded Confirmed clonazepam 1 mg tablet 1 mg PO DAILY PRN Anxiety 02/08/20 02/17/22 fluoxetine 10 mg capsule 10 mg PO QAM 01/28/22 02/17/22 pantoprazole 40 mg tablet,delayed 40 mg PO DAILY 05/08/22 05/08/22 release quetiapine 25 mg tablet 25 mg PO DAILY 05/08/22 05/08/22 Allergies Allergy/AdvReac Type Severity Reaction Status Date / Time No Known Allergies Allergy Verified 05/08/22 13:53 Review of Systems Review of Systems: CONSTITUTIONAL: Denies malaise or fever. ENT: Denies rhinorrhea, congestion, sinus pain, otalgia or sore throat. CARDIOVASCULAR: Denies chest pain, palpitations, or edema. RESPIRATORY: Denies cough or dyspnea. GASTROINTESTINAL: Reports right upper quadrant abdominal pain, constipation. Reports mucousy stools. Denies nausea, vomiting, diarrhea, bloody, or mucous stools. GENITOURINARY: Denies dysuria, frequency, urgency, or hematuria. Reports foamy urine MUSCULOSKELETAL: Reports chronic myalgia. NEUROLOGIC: Denies headache. 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 There is no relevant family history pertinent to the presenting complaint Exam Narrative: GENERAL: Well-appearing, well-nourished, and in no acute distress. HEAD: Normocephalic, atraumatic. EYES: PERRLA, conjunctivae clear, and EOMI. ENT: Nares clear. Mucous membranes moist. NECK: Supple. No lymphadenopathy CHEST: Speaks in full sentences. No respiratory distress. HEART: Regular rate and rhythm. ABDOMEN: Soft, flat, nondistended. Right upper quadrant tenderness.. No guarding, rebound tenderness, or rigidity. No pulsatile masses. Bowel sounds present in all four quadrants. No organomegaly. No periumbilical tenderness. No Supra public tenderness or distension. SKIN: Warm, dry, no rash. NEURO: Alert and oriented x3. PSYCH: Normal mood and a
[2022-05-08 14:00] VITALS: BP 149/83; PULSE 105; RESP 16; TEMP 36.7; O2SAT 98
== END 2022-05-08 14:35 | disposition home or self-care (01) ==
PROVIDERS: Emergency Provider Nurse Practitioner; PCP Internal Medicine
DX: R10.11 Right upper quadrant pain (principal); F12.90 Cannabis use, unspecified, uncomplicated; J45.909 Unspecified asthma, uncomplicated; K76.0 Fatty (change of) liver, not elsewhere classified
CPT/HCPCS: 74018; 81003; 87086; 99213; G0463

== ENCOUNTER 2022-11-24 06:40 | Emergency (ER) | payer OTHER, SELFPAY ==
[2022-11-24] VITALS (11 sets, daily range): BP systolic 114–135; BP diastolic 70–81; PULSE 69–91; RESP 13–18; TEMP 36.4–36.7; O2SAT 97–100
[2022-11-24] MEDS: SODIUM CHLORIDE 0.9% IV 1,000 ML 999 ML IV CONT ×2 (07:35→08:10)
[2022-11-24] MEDS: ONDANSETRON INJ 4 MG/2 ML VIAL IV PUSH (07:35)
[2022-11-24 07:38] LABS: Basophils Absolute Auto 0.1 K/mm3 (0.0-0.1); Basophils Percent Auto 0.7 % (0.2-1.2); Eosinophils Absolute Auto 0.2 K/mm3 (0-0.3); Eosinophils Percent Auto 2.2 % (0-4.4); Hematocrit 43.9 % (42.0-52.0); Hemoglobin 14.6 g/dL (14.0-18.0); Immature Granulocyte Absolute 0.08 K/mm3 (0.00-0.031); Immature Granulocyte Percent A 0.8 % (0-0.5); Lymphocytes Absolute Auto 2.31 K/mm3 (0.9-3.2); Lymphocytes Percent Auto 23.2 % (18.3-44.2); Mean Corpuscular HGB Conc 33.3 g/dl (32-36); Mean Corpuscular Hemoglobin 29.2 pg (26-34); Mean Corpuscular Volume 87.8 fl (80-100); Mean Platelet Volume 11.2 fl (7.4-10.4); Monocytes Absolute Auto 0.9 K/mm3 (0.1-0.6); Monocytes Percent Auto 9.3 % (2.6-8.5); Neutrophils Absolute Auto 6.4 K/mm3 (1.3-6.7); Neutrophils Percent Auto 63.8 % (45.5-73.1); Platelet Count Result 286 k/mm3 (150-375); Red Cell Distribution Width 11.9 % (11.5-14.5)
[2022-11-24] MEDS: LIDOCAINE HCL 2% VISC SOLN 15 ML UDC PO (07:38)
--- NOTE | 2022-11-24 07:38 | ED.DENTAL ---
HPI - Dental/Oral General Chief complaint: Dental/Oral Stated complaint: bleeding tonsils Time Seen by Provider: 11/24/22 06:57 History of Present Illness HPI Narrative: This is a 27-year-old male, status post tonsillectomy approximately 6 days ago, who presents complaining of sore throat and bleeding this morning. The patient states he woke approximately 1 hour prior to arrival and noticed sore throat and bleeding with clots at his right tonsillectomy site. He states he drank cold water with slight improvement. He believes his bleeding has stopped but his not sure if he swallowed a large amount of blood. He complains of some nausea and lightheadedness. Related Data Home Medications Medication Instructions Recorded Confirmed clonazepam 1 mg tablet 1 mg PO DAILY PRN Anxiety 02/08/20 05/08/22 fluoxetine 10 mg capsule 10 mg PO QAM 01/28/22 05/08/22 pantoprazole 40 mg tablet,delayed 40 mg PO DAILY 05/08/22 05/08/22 release quetiapine 25 mg tablet 25 mg PO DAILY 05/08/22 05/08/22 Allergies Allergy/AdvReac Type Severity Reaction Status Date / Time No Known Allergies Allergy Verified 05/08/22 13:53 Review of Systems Review of Systems: CONSTITUTIONAL: Denies fever, chills, or sweats. EYES: Denies visual changes, redness, or discharge. ENT: Sore throat, bleeding at tonsillectomy site denies rhinorrhea, congestion, or otalgia. CARDIOVASCULAR: Denies chest pain, palpitations, or edema. RESPIRATORY: Denies cough or dyspnea. GASTROINTESTINAL: Denies abdominal pain, nausea, vomiting, or diarrhea. GENITOURINARY: Denies dysuria or hematuria. SKIN: Denies rash or itching. MUSCULOSKELETAL: Denies back pain, joint pain, or myalgia. NEUROLOGIC: Lightheadedness denies headache, numbness, or weakness. PSYCHIATRIC: Denies anxiety or depression. 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 Surgical History Surgical History (Updated 11/24/22 @ 07:41 by Osvaldo Ashley MD) History of laparoscopic appendectomy 01/29/22 History of tonsillectomy Family History Family History Grandparent Diabetes mellitus Acute myocardial infarction Sibling Diabetes mellitus Other Gall bladder disease Social History Social History Smoking status: Never smoker Alcohol intake: never Substance use: current Substance use type: marijuana Other substance usage details: doesnt smoke it, vaporizes it Living arrangements: with family Spiritual care concerns: No Exam Narrative: GENERAL: Well-developed, well-nourished, and in no acute distress. Appears uncomfortable HEAD: Normocephalic, atraumatic. EYES: PERRLA and EOMI. conjunctivae are not pale ENT: Nares clear, no rhinorrhea or epistaxis. Mucous membranes moist. Oropharynx with healing wounds of the bilateral tonsils, consistent with tonsillectomy and cauterization. No active bleeding noted. CHEST: Clear to auscultation. No respiratory distress. No wheezes rales or rhonchi HEART: Regular rate and rhythm. No murmur heard. Normal peripheral pulses. ABDOMEN: Soft, nontender, nondistended, normal active bowel sounds. EXTREMITIES: Normal range of motion. No edema. SKIN: Warm, dry, no rash. NEURO: No focal deficits. Alert and oriented x3. PSYCH: Normal mood and affect. Course Course Emergency Course: 10:00 - After 2 L of IV fluid and observation in the emergency department, the patient has not had any recurrent bleeding and is feeling improved. Hemoglobin 14.6, which is at the patient's baseline. INR within normal limits. On my repeat evaluation, there is no active bleeding. Will discharge with recommendation to follow-up with his ENT surgeon and primary care doctor. Discussed return and emergency
[2022-11-24 07:59] LABS: Prothrombin Time 13.8 Seconds (11.1-14.7)
== END 2022-11-24 10:20 | disposition home or self-care (01) ==
PROVIDERS: Emergency Provider Preventive Medicine Aerospace Medicine; PCP Internal Medicine
DX: J95.830 Postprocedural hemorrhage of a respiratory system organ or structure following a respiratory system procedure (principal); R11.0 Nausea; J45.909 Unspecified asthma, uncomplicated
CPT/HCPCS: 36415; 85025; 85610; 96361; 96374; 99284; J2405; J7030